=== PATIENT | male | born 1950 | race Caucasian/White ===

== ENCOUNTER 2016-12-26 00:26 | Emergency (ER) | payer MEDICARE, OTHER ==
[~2016-12-26] VITALS: Ht 177.8 cm; Wt 87.5 kg
[2016-12-26 00:31] VITALS: Ht 177.8 cm; Wt 87.5 kg
--- NOTE | 2016-12-26 01:11 | ERA ---
ER Documentation Chief Complaint Date/Time DATE: 12/26/16 TIME: 01:11 Chief Complaint accidentally took 100mg of oxycodone an hr after taking his usual 100mg dos HPI The patient is a 66-year-old male, presenting to the ER because of possible accidental overdose of oxycodone 100 mg about an hour apart. He was not sure whether he took his second oxycodone 100 mg the second time but was concerned that he might be overdosed accidentally. He normally takes oxycodone 100 mg every 5 hours [id number] for chronic low back pain. He still complaining of low back pain about 4/10 at this time. He denies fever, chills, neck pain, chest pain, abdominal pain, vomiting, dysuria, diarrhea. He does not smoke nor drink Past medical history: Chronic low back pain, chronic pain syndrome Past surgical history: None ROS All systems reviewed and are negative except as per history of present illness. Medications Home Meds Reported Medications Oxycodone Hcl* (IR) (Oxycodone Hcl*) 5 Mg Capsule, 20 MG PO Q5H Y for PAIN, CAP 12/26/16 Allergies Allergies: Coded Allergies: No Known Allergy (Unverified , 12/26/16) PMhx/Soc History of Surgery: No Anesthesia Reaction: No Hx Neurological Disorder: Yes (4 RUPTURED LUMBAR SPINAL DISKS ) Hx Respiratory Disorders: No Hx Cardiac Disorders: No Hx Psychiatric Problems: No Hx Miscellaneous Medical Probl: No Hx Alcohol Use: No Hx Substance Use: No Hx Tobacco Use: Yes Smoking Status: Former smoker Physical Exam Vitals Vital Signs Date Time Temp Pulse Resp B/P Pulse Ox O2 Delivery O2 Flow Rate FiO2 12/26/16 00:31 98.5 99 20 166/79 98 Physical Exam Const: No acute distress. Head: Atraumatic. Eyes: Normal Conjunctiva. ENT: Normal External Ears, Nose and Mouth. Neck: Full range of motion. No meningismus. Resp: Clear to auscultation bilaterally. Cardio: Regular rate and rhythm, no murmurs. Abd: Soft, non distended, normal bowel sounds, non tender. Skin: No petechiae or rashes. Back: No midline or flank tenderness. Ext: No cyanosis, or edema. Neur: Awake and alert. No focal deficit Psych: Normal Mood and Affect. Procedures/MDM MEDICAL MAKING DECISION: The patient is a 66-year-old male, presenting to the ER because of possible accidental overdose on oxycodone. He is awake, alert, still complaining of low back pain, I do not suspect that he might be overdosing the medication. I would like to observe him in the ER for couple hours, however he declined and wanted to sign out AMA The patient signed out AGAINST MEDICAL ADVICE. Risks, benefits, alternatives were explained to the patient. Risks include but not limited to and permanent disability Departure Diagnosis: Primary Impression: Accidental overdose Condition: Stable Comments The patient's blood pressure was elevated (>120/80) but appears stable without evidence of hypertension emergency or urgency. The patient was counseled about the risks of hypertension and urged to pursue outpatient monitoring and therapy within a week with their primary care physician. SAMMIE CERVANTES MD December 26, 2016 01:11
[2016-12-26] MEDS ORDERED: OXYC5CAP17 PO (01:49)
== END 2016-12-26 02:22 | disposition left against medical advice (07) ==
LOC: E/R 00:26
DX: T40.2X1A Poisoning by other opioids, accidental (unintentional), initial encounter (principal); Z87.891 Personal history of nicotine dependence
CPT/HCPCS: 99282

== ENCOUNTER 2017-04-19 02:56 | Observation (INO) | payer MEDICARE ==
[2017-04-19] VITALS (8 sets, daily range): BP systolic 105–176; BP diastolic 57–87; PULSE 40–60; RESP 16–18; TEMP 98.2; Ht 177.8 cm; Wt 90.0 kg
[~2017-04-19] VITALS: Ht 177.8 cm; Wt 90.0 kg
[~2017-04-19 02:56] MED LIST: OXYC5CAP17 PO
[2017-04-19] MEDS ORDERED: NITROGLYCERIN 2% 1 GM OINT PKT TD STA (03:27)
[2017-04-19] MEDS ORDERED: morphine 4 MG/ML VIAL IV STA (03:27)
[2017-04-19] MEDS ORDERED: ASPIRIN 325 MG TAB PO STA (03:27)
[2017-04-19] MEDS ORDERED: ONDANSETRON 4 MG INJ IV STA (03:27)
--- NOTE | 2017-04-19 04:20 | RADRPT ---
PROCEDURE: XR Chest. CLINICAL INDICATION: Shortness of breath. TECHNIQUE: AP Portable chest. COMPARISON: No pertinent prior examinations were submitted for comparison. FINDINGS: There is mild cardiomegaly. The lungs are clear. The osseous structures are unremarkable. IMPRESSION: No acute findings. RPTAT: HIKT .Delta Gould MD, MD Date Time Electronically viewed and signed by .Delta Gould MD, MD on 04/19/2017 04:20 .T/
[2017-04-19 04:30] LABS: BASOPHIL # 0.1 10^3/ul (0.0-0.1); BASOPHILS % 0.9 % (0.0-2.0); EOSINOPHILS # 0.3 10^3/ul (0.0-0.5); EOSINOPHILS % 3.8 % (0.0-7.0); HEMATOCRIT 37.5 % (42.0-52.0); HEMOGLOBIN 12.6 g/dl (14.0-18.0); LYMPHOCYTES # 3.2 10^3/ul (0.8-2.9); LYMPHOCYTES % 37.2 % (15.0-51.0); MEAN CORPUSCULAR HEMOGLOBIN 30.6 pg (29.0-33.0); MEAN CORPUSCULAR HGB CONC 33.6 g/dl (32.0-37.0); MEAN PLATELET VOLUME 11.2 fl (7.4-10.4); MONOCYTE # 0.7 10^3/ul (0.3-0.9); MONOCYTES % 7.6 % (0.0-11.0); NEUTROPHIL # 4.4 10^3/ul (1.6-7.5); NEUTROPHILS % 50.3 % (39.0-77.0); PLATELET COUNT 165 10^3/UL (140-415); RED BLOOD COUNT 4.12 10^6/ul (4.70-6.10); RED CELL DISTRIBUTION WIDTH 12.9 % (11.5-14.5); WHITE BLOOD COUNT 8.7 10^3/ul (4.8-10.8)
[2017-04-19 04:56] LABS: ANION GAP 13 (8-16); BLOOD UREA NITROGEN 14 mg/dl (7-20); CALCIUM 9.5 mg/dl (8.4-10.2); CARBON DIOXIDE 28 mmol/L (21-31); CHLORIDE 104 mmol/L (97-110); CREATININE 0.85 mg/dl (0.61-1.24); GLUCOSE 95 mg/dl (70-220); POTASSIUM 3.9 mmol/L (3.5-5.1); SODIUM 141 mmol/L (135-144)
[2017-04-19 05:14] LABS: TROPONIN-I < 0.012 ng/ml (0.00-0.12)
--- NOTE | 2017-04-19 05:31 | ERA ---
ER Documentation Chief Complaint Date/Time DATE: 04/19/17 TIME: 05:28 Chief Complaint CP, SOB x 30 min [employer] HPI This 66-year-old male who was awoke from sleep just prior to arrival with an irregular heartbeat substernal chest pressure, shortness of breath and diaphoresis. He says the chest pressure was moderate to severe and now is only minimal. He has no prior cardiac history and denies any diabetes hypertension or high cholesterol but he has a [id number] smoking history. He says the pain did not radiate to his jaw neck or back. He said was just substernal. She says heart rate was not fast but was beating irregularly but that has resolved at this time. ROS All systems reviewed and are negative except as per history of present illness. Medications Home Meds Reported Medications Oxycodone Hcl* (IR) (Oxycodone Hcl*) 5 Mg Capsule, 20 MG PO Q5H Y for PAIN, CAP 12/26/16 Allergies Allergies: Coded Allergies: No Known Allergy (Unverified , 04/19/17) PMhx/Soc History of Surgery: No Anesthesia Reaction: No Hx Neurological Disorder: Yes (4 RUPTURED LUMBAR SPINAL DISKS ) Hx Respiratory Disorders: No Hx Cardiac Disorders: No Hx Psychiatric Problems: No Hx Miscellaneous Medical Probl: No Hx Alcohol Use: No Hx Substance Use: No Hx Tobacco Use: Yes Smoking Status: Former smoker FmHx Family History: No coronary disease Physical Exam Vitals Vital Signs Date Time Temp Pulse Resp B/P Pulse Ox O2 Delivery O2 Flow Rate FiO2 04/19/17 03:54 98.2 78 18 145/76 96 Room Air 04/19/17 03:00 98.2 88 18 170/84 96 Physical Exam Const: Well-developed, well-nourished Head: Atraumatic, normocephalic Eyes: Normal Conjunctiva, PERRLA, EOMI, normal sclera, no nystagmus ENT: Normal External Ears, Nose and Mouth, moist mucus membranes. Neck: Full range of motion. No meningismus, no lymphadenopathy. Resp: Clear to auscultation bilaterally, no wheezing, rhonchi, rales Cardio: Regular rate and rhythm, no murmurs, S1 S2 present Abd: Soft, non tender x 4, non distended. Normal bowel sounds, no guarding or rebound, no pulsitile abdominal masses or bruits Skin: No petechiae or rashes, no ecchymosis , no maculopapular rash Back: No midline or flank tenderness Ext: No cyanosis, or edema, FROM x 4, normal inspection, neurovascularly intact x 4 Neur: Awake and alert, STR 5/5 x 4, sensation intact x 4, no focal findings, cerebellum intact Psych: Normal Mood and Affect Result Diagram: 04/19/17 0339 04/19/17 0339 Results 24 hrs Laboratory Tests Test 04/19/17 03:39 White Blood Count 8.710^3/ul Red Blood Count 4.1210^6/ul Hemoglobin 12.6g/dl Hematocrit 37.5% Mean Corpuscular Volume 91.0fl Mean Corpuscular Hemoglobin 30.6pg Mean Corpuscular Hemoglobin Concent 33.6g/dl Red Cell Distribution Width 12.9% Platelet Count 83592^3/UL Mean Platelet Volume 11.2fl Neutrophils % 50.3% Lymphocytes % 37.2% Monocytes % 7.6% Eosinophils % 3.8% Basophils % 0.9% Nucleated Red Blood Cells % 0.0/100WBC Neutrophils # 4.410^3/ul Lymphocytes # 3.210^3/ul Monocytes # 0.710^3/ul Eosinophils # 0.310^3/ul Basophils # 0.110^3/ul Nucleated Red Blood Cells # 0.010^3/ul Sodium Level 141mmol/L Potassium Level 3.9mmol/L Chloride Level 104mmol/L Carbon Dioxide Level 28mmol/L Anion Gap 13 Blood Urea Nitrogen 14mg/dl Creatinine 0.85mg/dl Glucose Level 95mg/dl Calcium Level 9.5mg/dl Troponin I < 0.012ng/ml Current Medications Medications (Trade) Dose Ordered Sig/Cynthia Route PRN Reason Start Time Stop Time Status Last Admin Dose Admin Aspirin (Aspirin) 325 mg ONCE STAT PO 04/19/17 03:27 04/19/17 03:28 DC 04/19/17 03:45 Nitroglycerin (Nitroglycerin 2% Oint) 1 inch ONCE STAT TD 04/19/17 03:27 04/19/17 03:28 DC 04/19/17 03:45 Morphine Sulfate (morphine) 4 mg ONCE STAT IV 04/19/17 03:27 04/19/17 03:28 DC 04/19/17 03:44 Ondansetron HCl (Zofran Inj) 4 mg ONCE STAT IV 04/19/17 03:27 04/19/17 03:28 DC 04/19/17 03:45 Procedures/MDM PROCEDURE: XR Chest. CLINICAL INDICATION: Shortness of breath. TECHNIQUE: AP Portable chest. COMPARISON: No pertinent prior examinations were submitted for comparison. FINDINGS: There is mild cardiomegaly. The lungs are clear. The osseous structures are unremarkable. IMPRESSION: No acute findings. RPTAT: HIKT .Dleta Gould MD, MD Date Time Electronically viewed and signed by .Delta Gould MD, MD on 04/19/2017 04:20 .T/ CC: ESTUARDO BELL DO 5EKG: Rate/Rhythm: Normal Sinus Rhythm,NL intervals QRS, ST, QT: NORMAL LA, QRS, QT] Impression: NORMAL EKG Patient's symptoms are concerning for cardiac cause will require inpatient workup and continuous monitoring. Further w/u for ischemia, arrhythmia, PE or dissection will be deferred to the inpatient team. Accepting Care Team: Current data and ongoing care discussed. Time: Time of admission Primary Provider: [XOXOXO] Consulting: [XOXOXO] Outstanding Data: none Departure Diagnosis: Primary Impression: Chest pain Qualified Code: R07.9 - Chest pain, unspecified type Condition: Stable ESTUARDO BELL DO Apr 19, 2017 05:31
[2017-04-19] MEDS ORDERED: SOD CHLORIDE 0.9% 1,000 ML IV SCH (05:32)
[2017-04-19] MEDS ORDERED: ONDANSETRON 4 MG INJ IV PRN (06:00)
[2017-04-19] MEDS ORDERED: ACETAMINOPHEN 325 MG TAB PO PRN ×2 (06:00→09:00)
[2017-04-19] MEDS ORDERED: oxyCODONE (20 MG/ML PO SYG) PO PRN (08:00)
[2017-04-19] MEDS ORDERED: oxyCODONE 5 MG TAB PO PRN (08:01)
[2017-04-19] MEDS ORDERED: oxyCODONE 15 MG TAB PO PRN (08:01)
[2017-04-19] MEDS ORDERED: NACL 0.9% 3 ML SYG IV SCH (09:00)
[2017-04-19] MEDS ORDERED: MAGNESIUM HYDROXIDE 30ML CUP PO PRN (09:00)
[2017-04-19] MEDS ORDERED: LORAZEPAM 2 MG INJ IV PRN (09:00)
[2017-04-19] MEDS: oxyCODONE 15 MG TAB PO SCH ×3 (09:11→17:23)
[2017-04-19] MEDS: oxyCODONE 5 MG TAB PO SCH ×3 (09:12→17:24)
--- NOTE | 2017-04-19 09:13 | HP ---
Date/Time of Note Date/Time of Note DATE: 04/19/17 TIME: 09:02 Assessment/Plan VTE Prophylaxis VTE Prophylaxis Intervention: heparin Lines/Catheters IV Catheter Type (from Nrsg): Saline Lock Assessment/Plan Assessment/Plan 1. Chest pain r/o ACS - Troponin negative x1 and will trend serial troponins - EKG shows no acute ST changes - Cardiology consulted and appreciate recommendations - ECHO ordered to evaluate for abnormalities - Lipid panel ordered 2. Back pain s/p mechanical fall - Restarted on home medications 3. Constipation - Will start on Senna/Colace daily 4. Code status - Full 5. Diet - Heart Healthy >40 minutes was spent at time of admission with patient. All labs and imaging were reviewed personally by myself HPI/ROS Admit Date/Time Admit Date/Time Apr 19, 2017 at 05:34 Hx of Present Illness 66 yo M with PMH back injury after fall 06/2016 on high dose of opioids presents to ED c/o chest pain. Patient states around 3am he woke up with moderate sternal chest pressure, non radiating, associated with diaphoresis and shortness of breath, occurring at rest and lasting about 1.5 hours. Patient states he was debating on going to the ED and decided to drive to the ED when the discomfort wasn't subsiding. Patient states he also felt like his heart was skipping a beat and then would beat harder. Patient denies any nausea, vomiting, dizziness, lightheadedness, or abdominal issues. He has a history of panic attacks that last occurred over 20 years ago but denies being under any extra stress last night before bed. Patient has no significant family history of heart disease. He is currently on Roxicodone 100mg q4hr PRN after experiencing a mechanical fall 06/2016 where he slipped on water at his house and injured his back. he is currently undergoing decompression treatment for 5 vertebra. ROS Constitutional: diaphoresis, No chills, No fatigue, No febrile, No nausea Eyes: no complaints ENT: no complaints Respiratory: shortness of breath, No cough, No sputum, No wheezing Cardiovascular: chest pain, edema, palpitations, No lightheadedness Gastrointestinal: constipation, No diarrhea, No nausea, No vomiting Genitourinary: no complaints Musculoskeletal: back pain Skin: no complaints Neurologic: no complaints Endocrine: no complaints Lymphatic: no complaints Psychological: no complaints Immunologic: no complaints (All 13 systems reviewed and pertinent positives as per HPI. All others negative) PMH/Family/Social Past Medical History Medical History: no pertinent history Past Surgical History Past Surgical Hx: no surgical history Family History Significant Family History: cancer Social History Alcohol Use: none Smoking Status: Former smoker Drug Use: none Exam/Review of Systems Vital Signs Vitals Vital Signs Date Time Temp Pulse Resp B/P Pulse Ox O2 Delivery O2 Flow Rate FiO2 04/19/17 08:00 51 04/19/17 06:53 97.4 18 121/66 95 Room Air Exam Constitutional: alert, oriented, well developed, No distress Psych: nl mood/affect Head: atraumatic, normocephalic Eyes: EOMI, PERRL, nl conjunctiva ENMT: mucosa pink and moist, nl external ears & nose Neck: non-tender, supple Respiratory: clear to auscultation, normal air movement, No crackles/rales, No diminished breath sounds, No wheezing Cardiovascular: regular rate and rhythm, No murmurs/extra sounds, No systolic murmur Gastrointestinal: non-tender, soft, No distended, No rebound or guarding Musculoskeletal: nl extremities to inspection, No spine non-tender Extremities: normal pulses Neurological: SERGER II-XII intact, nl mental status, nl speech, nl strength Skin: nl turgor Lymph: nl lymph nodes Labs Result Diagram: 04/19/17 0339 04/19/17 0339 Medications Medications Current Medications Sodium Chloride (NS) 1,000 ml @ 80 mls/hr [id number] IV ; Start 04/19/17 at 05:32 ; Stop 04/19/17 at 18:01 Oxycodone HCl (Roxicodone) 90 mg Q4H PO ; Start 04/19/17 at 09:00 Oxycodone HCl (Roxicodone) 10 mg Q4H PO ; Start 04/19/17 at 09:00 OLIVER SNIDER MD Apr 19, 2017 09:12
[2017-04-19] MEDS ORDERED: SENNA/DOCUSATE NA (8.6MG/50MG) TAB PO SCH (10:30)
[2017-04-19 11:40] LABS: CREATINE KINASE 130 IU/L (23-200)
[2017-04-19 11:53] LABS: CK-MB 2.61 ng/ml (0.0-2.4); TROPONIN-I < 0.012 ng/ml (0.00-0.12)
[2017-04-19] MEDS ORDERED: HEPARIN 5,000 UNIT/0.5 ML VIAL SC SCH (14:00)
[2017-04-19 18:03] LABS: CREATINE KINASE 128 IU/L (23-200)
[2017-04-19] MEDS ORDERED: NITROGLYCERIN (SL) 0.4 MG TAB SL PRN (18:30)
[2017-04-19 18:44] LABS: CK-MB 2.81 ng/ml (0.0-2.4); TROPONIN-I < 0.012 ng/ml (0.00-0.12)
--- NOTE | 2017-04-19 20:40 | RADRPT ---
Echocardiogram Report Patient Name: FRANCES SEGURA Gender: Male Date: 1950 Study Date: 19-Apr-2017 Grant Manager: Jeniffer [facility] Location: 33[address] Ref. Physician: OLIVER SNIDER Quality: Adequate Procedures: Transthoracic echocardiogram with complete 2D, M-Mode, and doppler examination. Indications: Mitral valve prolapse, presents chest pain. 2D/M Mode Doppler Measurement Value Normal Ranges Measurement Value Normal Ranges LVIDd 2D 4.4 3.5 - 5.6 cm AV Peak Scout 1.4 m/sec LVIDs 2D 3.0 2.1 - 4.1 cm AV Peak PG 7.6 mmHg LVPWd 2D 1.3 0.6 - 1.1 cm LVOT Peak Scout 1.2 m/sec IVSd 2D 1.3 0.6 - 1.1 cm LVOT Peak PG 6.2 mmHg AoR Diam 2D 3.4 2.0 - 3.7 cm MV E Peak Scout 1.1 m/sec EDV 2D 89.9 cm3 MV A Peak Scout 1.1 m/sec ESV 2D 26.7 cm3 MV E/A 1.0 LA Dimen 2D 3.8 2.3 - 4.0 cm MV Decel Time 193 msec MV Decel Moore 6 MV E/A 1.0 Findings Left Ventricle: Normal left ventricular systolic function. Normal left ventricular cavity size. Mild concentric left ventricular hypertrophy. Ejection fraction is visually estimated at 65 %. Tissue Doppler/Mitral Doppler indices are consistent with impaired relaxation (Stage I diastolic dysfunction). Right Ventricle: Normal right ventricular size. Normal right ventricular systolic function. Left Atrium: The left atrium is normal in size. Right Atrium: The right atrium is normal in size. Mitral Valve: Mild mitral leaflet calcification. Mild mitral annular calcification. Trace mitral regurgitation. Aortic Valve: Normal appearance of the aortic valve. No significant aortic stenosis or insufficiency. Tricuspid Valve: Normal appearance of the tricuspid valve. Unable to obtain RVSP due to minimal presence of tricuspid regurgitation. There is trace tricuspid regurgitation. Pulmonic Valve: Pulmonic valve not well visualized. There is trace pulmonic regurgitation. Pericardium: Normal pericardium with no significant pericardial effusion. Aorta: Normal aortic root. IVC: Normal size and normal respiratory collapse consistent with normal right atrial pressure. Conclusions 1.Normal left ventricular systolic function. Normal left ventricular cavity size. Mild concentric left ventricular hypertrophy. Ejection fraction is visually estimated at 65 %. Tissue Doppler/Mitral Doppler indices are consistent with impaired relaxation (Stage I diastolic dysfunction). 2.Mild mitral leaflet calcification. Mild mitral annular calcification. Trace mitral regurgitation. 3.Normal appearance of the tricuspid valve. Unable to obtain RVSP due to minimal presence of tricuspid regurgitation. There is trace tricuspid regurgitation. 4.Pulmonic valve not well visualized. There is trace pulmonic regurgitation. Electronically Signed By: Bishnu Santiago 19-Apr-2017 20:40:00 -0700 Patient Name: FRANCES SEGURA Study Date: 19-Apr-2017 [id number]
--- NOTE | 2017-04-20 06:00 | CONS ---
DATE OF ADMISSION: 04/19/2017 DATE OF CONSULTATION: 04/19/2017 REASON FOR CONSULTATION: Chest pain and bradycardia. Assess for acute coronary syndrome. REFERRING PHYSICIAN: Dr. Bautista, hospitalist service. HISTORY OF PRESENT ILLNESS: Mr. Whitney is a 66-year-old male with history of chronic back pain since a fall, June 2016, takes high-dose opioids for chronic pain, who states that he was awoken from a substernal chest pain, described as a pressure-like sensation, radiating across his chest, with associated shortness of breath, lasting approximately 45 minutes at about 3 a.m. Patient states last time he had chest pain similar to this was about a year. Patient subsequently presented to the emergency department here at [facility]. Upon arrival, temperature was 98.2, blood pressure 170/84, pulse 88, respiratory rate 18, satting 96 percent. Patient's labs revealed sodium 141, potassium 3.9, creatinine 0.8, BUN 14. Troponin negative. White blood cells 8.7, hemoglobin 12.6, platelet count 165. Patient underwent a chest x- ray, revealing mild cardiomegaly, clear lungs. Patient's electrocardiogram revealed normal sinus rhythm, rate of 75, normal axis and intervals, isolated flattening in lead III. Patient subsequently admitted to the floor and has been monitored on telemetry, with telemetry strips in the chart going as low as 44 and per report, has gone down to the high 30s. Patient had been somewhat sleeping on heavy-dose opioids. PAST MEDICAL HISTORY: As above in HPI. MEDICATION: In Hospital: 1. Heparin 500 subcu q.8. 2. Oxycodone 90 mg q.4, with 10 q.4 additional, for a total of 100 q.4. 3. Zofran p.r.n. 4. Tylenol p.r.n. 5. Ativan p.r.n. ALLERGIES: NO KNOWN DRUG ALLERGIES. SOCIAL HISTORY: Prior tobacco, quit x6 months. Social EtOH. No illicit drug use. FAMILY HISTORY: No history of sudden cardiac or early CAD. REVIEW OF SYSTEMS: As above in HPI. CONSTITUTIONAL: No fevers, chills. RESPIRATORY: No shortness of breath. CARDIOVASCULAR: Chest pain, bradycardia. GASTROINTESTINAL: No vomiting. GENITOURINARY: No hematuria. MUSCULOSKELETAL: Degenerative joint disease, back pain. PSYCHIATRIC: No documented psych history. NEUROLOGIC: No documented CVA. ENDOCRINE: No documented history of diabetes mellitus, thyroid disease. PHYSICAL EXAMINATION: VITAL SIGNS: Temperature 98.2, blood pressure most recent 105/57, pulse 58, respiratory rate 18, saturating 98 percent on room air. GENERAL: The patient is alert, awake, no acute distress. NECK: JVP approximately 8-9 cm of water. LUNGS: Fair air movement throughout. HEART: Regular rate and rhythm. Normal S1, S2, 1/6 systolic murmur. Nondisplaced PMI. ABDOMEN: Positive bowel sounds. Soft. EXTREMITIES: No edema; 1+ pulses, bilateral posterior tibia. LABORATORY: As above in HPI. Since patient being admitted, having negative, 2 negative troponins. IMAGING STUDIES: As above in HPI, with the chest x-ray revealing no acute cardiac abnormalities and mild cardiomegaly. ECG as above in HPI. No further electrocardiograms for review at this time. IMPRESSION: 1. Chest pain. Assess for acute coronary syndrome. 2. Bradycardia down to the high 30s, per report. 3. Hypertension, labile, with borderline hypotension most recently. 4. Chronic pain syndrome, with chronic back pain, taking high- dose opioid, possibly associated with patient's bradycardia. 5. Anemia. 6. Remote tobacco. RECOMMENDATIONS: 1. At this time, would maintain patient on telemetry monitoring overnight to follow rhythm and rate and assess for more significant bradyarrhythmias. 2. Check a TSH to see if subclinical hypothyroidism is not contributing to ongoing bradyarrhythmia. 3. Will hold off any novel agents, given bradycardia and antihypertensive agents. 4. We will give patient sublingual nitroglycerin for recurring episodes of chest pain. 5. Would place patient on aspirin 81 mg for prophylaxis of cardiovascular events. 6. Check a 2D echo to assess ejection fraction, wall motion, and major abnormalities, and if patient does rule out myocardial infarction, will place patient for a stress test to take place first thing in the morning to assess the possibility of significant symptoms of chest pain, and subsequent electrocardiogram abnormalities. Thank you for allowing me to take part in the care of this patient. I will continue to follow very closely with you, with recommendations to be made as patient goes through his inpatient hospital course. Dictated By: Bishnu Santiago MD /luna/stacy /Document#: [id number]
--- NOTE | 2017-04-20 07:45 | DS ---
Date/Time of Note Date/Time of Note DATE: 04/20/17 TIME: 07:45 Discharge Summary Admission/Discharge Info Admit Date/Time Apr 19, 2017 at 05:34 Discharge Date/Time Apr 19, 2017 at 20:14 Discharge Diagnosis Acute chest pain rule out ACS Patient Condition: Fair Consults Cardiology, Dr. Santiago. Hx of Present Illness 66 yo M with PMH back injury after fall 06/2016 on high dose of opioids presents to ED c/o chest pain. Patient states around 3am he woke up with moderate sternal chest pressure, non radiating, associated with diaphoresis and shortness of breath, occurring at rest and lasting about 1.5 hours. Patient states he was debating on going to the ED and decided to drive to the ED when the discomfort wasn't subsiding. Patient states he also felt like his heart was skipping a beat and then would beat harder. Patient denies any nausea, vomiting, dizziness, lightheadedness, or abdominal issues. He has a history of panic attacks that last occurred over 20 years ago but denies being under any extra stress last night before bed. Patient has no significant family history of heart disease. He is currently on Roxicodone 100mg q4hr PRN after experiencing a mechanical fall 06/2016 where he slipped on water at his house and injured his back. he is currently undergoing decompression treatment for 5 vertebra. Hospital Course Patient was admitted for cardiac workup and Cardiology was consulted. Recommendations were to monitor patient for at least 24 hours to assess for further episodes of bradyarrhythmias. He was started on aspirin and ECHO was ordered. At 1999, patient removed his telemetry leads and dressed himself. He left AMA despite having been told about importance of being monitored and having cardiac workup completed. Home Meds Reported Medications Oxycodone Hcl* (IR) (Oxycodone Hcl*) 5 Mg Capsule, 20 MG PO Q5H Y for PAIN, CAP 12/26/16 Primary Care Provider Care Physician No Primary Time spent on discharge: < 30 minutes Pending Labs Laboratory Tests Test 04/19/17 10:11 04/19/17 16:49 Creatine Kinase 130IU/L (23-200) 128IU/L (23-200) Creatine Kinase Index 2.0 2.2 Creatinine Kinase MB (Mass) 2.61ng/ml (0.0-2.4) 2.81ng/ml (0.0-2.4) Troponin I < 0.012ng/ml (0.00-0.12) < 0.012ng/ml (0.00-0.12) OLIVER SNIDER MD Apr 20, 2017 07:45
== END 2017-04-19 20:14 | disposition left against medical advice (07) ==
LOC: E/R 02:56 → MS3 05:34
PROVIDERS: ADMIT Family Medicine; ATTEND Family Medicine
DX: R07.9 Chest pain, unspecified (principal); R00.1 Bradycardia, unspecified; I10 Essential (primary) hypertension; G89.4 Chronic pain syndrome; D64.9 Anemia, unspecified; Z87.891 Personal history of nicotine dependence
CPT/HCPCS: 71010; 80048; 82550; 82553; 84443; 84484; 85025; 93005; 93306; G0378; J2270; J2405; J7030

== ENCOUNTER 2017-10-26 07:50 | Emergency (ER) | END 2017-10-26 08:42 | disposition home or self-care (01) ==

== ENCOUNTER 2017-11-26 05:05 | Emergency (ER) | END 2017-11-26 08:28 | disposition home or self-care (01) ==

== ENCOUNTER 2017-11-27 05:55 | Emergency (ER) | END 2017-11-27 13:23 | disposition home or self-care (01) ==

== ENCOUNTER 2017-12-05 05:15 | Emergency (ER) | END 2017-12-05 07:22 | disposition home or self-care (01) ==